=== PATIENT | female | born 1990 | race Caucasian/White ===

== ENCOUNTER 2016-11-30 20:00 | Emergency (ER) | payer OTHER ==
[2016-11-30 19:06] LABS: BASOPHILS 0.2 %; BASOPHILS ABSOLUTE 0.02 10/3/uL (0.0-0.16); EOSINOPHILS 2.7 %; EOSINOPHILS ABSOLUTE 0.25 10/3/uL (0.0-0.53); HEMOGLOBIN 14.2 g/dL (12.0-16.0); IMMATURE GRANULOCYTES 0.2 %; IMMATURE GRANULOCYTES ABSOLUTE 0.02 10/3/uL (0.0-0.11); LYMPHOCYTES 37.7 %; MEAN CORPUS HGB CONC 33.7 g/dL (32.0-36.0); MEAN CORPUSCULAR HEMOGLOB 27.9 pg (26.0-34.0); MEAN CORPUSCULAR VOLUME 82.7 fL (80-100); MEAN PLATELET VOLUME 8.7 fL (9.2-13.0); MONOCYTES ABSOLUTE 0.56 10/3/uL (0.21-1.20); NEUTROPHILS 53.2 %; NEUTROPHILS ABSOLUTE 4.93 10/3/uL (2.02-8.40); PLATELET COUNT 291 10/3/uL (150-400); RBC DISTRIBUTION WIDTH 13.3 % (12.0-16.0); RED CELL COUNT 5.09 10/6/uL (4.0-5.6); WHITE BLOOD CELLS 9.3 10/3/uL (4.5-10.5)
[2016-11-30 19:07] LABS: HEMATOCRIT 42.1 % (36.0-48.0); MANUAL DIFF NO %
[2016-11-30 19:21] LABS: ALBUMIN 3.9 G/DL (3.5-5.0); ALKALINE PHOSPHATASE 77 U/L (45-117); BUN (BLOOD UREA NITROGEN) 9 MG/DL (6-23); CALCIUM, SERUM 9.1 MG/DL (8.5-10.4); CHLORIDE, SERUM 102 MMOL/L (96-112); CO2 (CARBON DIOXIDE) 30 MMOL/L (24-34); CREATININE 0.75 MG/DL (0.55-1.02); GFR AFRICAN AMERICAN 126 ML/MIN (>=60); GFR NON AFRICAN AMERICAN 108 ML/MIN (>=60); GLUCOSE, SERUM 97 MG/DL (60-99); POTASSIUM, SERUM 3.9 MMOL/L (3.5-5.3); SGOT(AST) 15 U/L (5-40); SGPT(ALT) 28 U/L (5-65); SODIUM, SERUM 138 MMOL/L (135-148); TOTAL BILIRUBIN 0.3 MG/DL (0-1.2)
[2016-11-30 19:22] LABS: ACETAMINOPHEN LEVEL (TYLENOL) < 2.0 MCG/ML (10.0-20.0); ALCOHOL < 3 MG/DL (0); GLOBULIN 4.1 G/DL (2.5-4.1); SALICYLATE < 1.7 MG/DL (-)
[2016-11-30 19:35] LABS: AMPHETAMINES (NOT ORD) NEG (NEG); BARBITURATES (NOT ORDERED NEG (NEG); BENZODIAZEPINES (NOT ORD) NEG (NEG); CANNABINOIDS (THC) NEG (NEG); COCAINE (NOT ORDERED) NEG (NEG); OPIATES NEG (NEG); PHENCYCLIDINE(PCP) NEG (NEG); TRICYCLICS NEG (NEG)
== END 2016-11-30 20:52 | disposition home or self-care (01) ==
LOC: ER 20:00
PROVIDERS: Nurse Practitioner Acute Care
DX: F80.81 Childhood onset fluency disorder (principal); Z88.5 Allergy status to narcotic agent; Z91.018 Allergy to other foods
CPT/HCPCS: 80053; 80305; 80307; 84703; 85025; 93005; 99284

== ENCOUNTER 2017-01-01 15:41 | Inpatient (IN) | payer OTHER ==
--- NOTE | ~2017-01-01 | EEG ---
Electroencephalogram [place] [id number] [facility] [place]. [address] NAME: CHRISTIANA SMITH : 86 STATUS : ADM Margareth PAT#: [id number] AGE: 26 ADM/REG DATE : 01/01/17 MR#: [id number] REPORT SERV DATE: 01/02/17 DICTATED BY: DATE: REPORT STATUS : Draft TRANSCRIBED BY: MODL DATE: 01/02/17 CLINICAL INDICATIONS: Encephalopathy, stuttering. DESCRIPTION: This EEG was performed using 10/20 electrode placement system. During the EEG study, symmetric background activity was noted with predominant occipital rhythm of roughly 11 Hz. EKG artifact was noted throughout the EEG study. Photic stimulation was performed with appropriate driving response. Hyperventilation was performed with subsequent lightheadedness. No electrographic seizure was seen during the EEG study. The patient achieved drowsy state during the EEG evaluation. No focal abnormalities, seizure activity, or seizure discharge were otherwise noted during the EEG evaluation. INTERPRETATION: This EEG study was obtained during awake and drowsy state, may be considered within normal limits. No focal abnormalities, seizure activity, or seizure discharge were otherwise noted. Clinical correlation is recommended. [facility]/MODL mon Bennett MD / [id number] CC: Danitza Harrington M.D.
--- NOTE | ~2017-01-01 | HP ---
History And Physical [place] [id number] [facility] [place]. [address] NAME: CHRISTIANA SMITH : 86 STATUS : ADM Margareth PAT#: [id number] AGE: 26 ADM/REG DATE : 01/01/17 MR#: [id number] REPORT SERV DATE: 01/01/17 DICTATED BY: YUMIKO BRAUN DATE: 01/01/17 REPORT STATUS : Draft TRANSCRIBED BY: MODL DATE: 01/01/17 DATE OF ADMISSION: 01/01/2017 HISTORY OF PRESENT ILLNESS: The patient is a 26-year-old female who was brought to [facility] by her because of confusion which patient developed today. The patient's reported that several weeks ago, the patient had a fall at home which was unwitnessed, and after which she developed stuttering, and also, he reported that this morning when she woke up, she was completely confused, she did not know where she is, she did not know what was going on with her, and her stuttering is continuing. The patient's is poor historian, and the patient herself is sitting and looking at me, looks very comfortable, but she cannot provide history. The patient's said that she has improved a little bit but her memory is gone, she forgot everything. Emergency room physician Dr. Ellis spoke with Dr. Fitch who was aware about this patient's stuttering problem and Dr. Fitch requested this patient to be admitted to the hospital to see neurologist, because he said that he could not get in touch with neurologist for a long time. During my interview with the patient, all questions were answered by the patient's , and he said that the patient was at the [facility] where she had the CT, MRI, and multiple studies done, and he said he does not know most of the results of the study, then he saw Dr. Fitch, and Dr. Fitch wanted to arrange Neurology appointment, but because of the long waiting time they are here, and he wants to know what is going on with his with her memory. The patient could not give me answers on the review of systems since she was stuttering and unable to answer properly, but she is able to follow commands. reported that she has thyroid problem, looks like hypothyroidism, also she had history of seizures and she was on gabapentin for the seizures, but recently Dr. Fitch discussed continued gabapentin because she had not had seizures anymore. PAST SURGICAL HISTORY: Includes hand surgery and shoulder dislocation. SOCIAL HISTORY: No smoking. No excessive alcohol use. No drugs. 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 I asked if there is a stress-related issues at her work, but he told me that she does not have any stress-related issues. FAMILY HISTORY: I asked if the patient's mother has any medical problems, the patient looked at me and answered while stuttering, multiple sclerosis, and she said while stuttering father had a stroke, and the patient also was able to answer stuttering. I also asked the patient what year it is now, she told me while stuttering that my mother told me it is year 2016, then I asked the patient does she know the name of this hospital, she told me while stuttering "I don't know the name of this hospital," then she looked at me and said "are you [place], you have an accent," I total told her that I am not [place], I am [place], that is why I have an accent. ALLERGIES: SHE IS ALLERGIC TO CODEINE AND CINNAMON. History And Physical [address] [place]. [address] NAME: CHRISTIANA SMITH : 86 STATUS : ADM Margareth PAT#: [id number] AGE: 26 ADM/REG DATE : 01/01/17 MR#: [id number] REPORT SERV DATE: 01/01/17 DICTATED BY: YUMIKO BRAUN DATE: 01/01/17 REPORT STATUS : Draft TRANSCRIBED BY: JOSE DATE: 01/01/17 MEDICATIONS: Home medications include Fioricet 1 to 2 tablets p.o. q.4 hours p.r.n., Prozac 40 mg daily, levothyroxine 50 mcg a day, naproxen 440 mg daily p.r.n. for headache, Zofran 8 mg p.o. q.6 hours p.r.n. for nausea, and Senokot 2 mg p.o. daily p.r.n. PHYSICAL EXAMINATION: General: Obese female, not in acute distress, sitting on the bed quietly. VITAL SIGNS: Blood pressure 140/79, temperature 98.3, heart rate 80, respiratory rate 24, oxygen saturation is going to be rechecked, oxygen saturation was 97 on room air. HEENT: Head atraumatic, normocephalic. Conjunctivae clear. Pupils are equal and reactive to light and accommodation. Extraocular muscles are intact. NECK: Supple. Trachea is midline. No supraclavicular or cervical lymphadenopathy. LUNGS: Clear to auscultation bilaterally. Normal respiratory effort. CARDIOVASCULAR SYSTEM: Regular rate and rhythm. Point of maximal impulse not displaced. ABDOMEN: Soft, nontender, nondistended. Positive normoactive bowel sounds. EXTREMITIES: No clubbing, cyanosis, or edema. SKIN: Normal color and turgor. NEUROLOGIC: She is awake, she is alert, she is oriented in the year and knows who she is. She has stuttering speech but she can follow commands. She can answer questions while stuttering, and she functions appropriately, having stuttering episodes. Cranial nerves 3 through 12 grossly intact. Sensations are intact. Muscle strength is 5/5 bilateral in upper and lower extremities. PSYCHIATRIC: Normal mood, a little bit indifferent and flat affect. LABORATORY RESULTS: Sodium 143, potassium 3.9, chloride 107, carbon dioxide 29, BUN 9, creatinine 0.61. Blood sugar 84, troponin less than 0.02. ALT 30, AST 16, white count 8.1, hemoglobin 13.9, hematocrit 40.8, platelet count 309. Urine test is negative. Urinalysis showed moderate amount of leukocyte esterase with [address] of the brain without contrast is ordered in the emergency room. The patient had also CT of the brain without contrast on 11/29/2016 which was negative as well as she had a MRI of the brain done on 11/21/2016 which showed bilateral maxillary sinus disease with small fluid meniscus suggesting acute superimposed on chronic sinusitis. No acute intracranial pathology otherwise. Chest x-ray done today did not show any abnormality. EKG showed normal sinus rhythm with the rate of 79. ASSESSMENT AND PLAN: 1. This is a 26-year-old female, who presented with episode of confusion at home, now it is resolving, as well as stuttering going on for several weeks according to the patient family after head trauma. She had a negative MRI and the CT of the brain recently. We are going to admit the patient as an observation, we are going to monitor her closely. I think this is most likely functional disorder, could be related to stress. I told the patient that there is a possibility it may be related to stress, especially with combination with stuttering, and patient is already has some improved memory. She even could mention that I have an accent and could communicate with me. We will ask Neurology to evaluate this patient per recommendation of Dr. Fitch. We will History And Physical [address] [place]. [address] NAME: CHRISTIANA SMITH : 86 STATUS : ADM Margareth PAT#: [id number] AGE: 26 ADM/REG DATE : 01/01/17 MR#: [id number] REPORT SERV DATE: 01/01/17 DICTATED BY: YUMIKO BRAUN DATE: 01/01/17 REPORT STATUS : Draft TRANSCRIBED BY: JOSE DATE: 01/01/17 consult Neurology. 2. Mild urinary tract infection, only 11 white cells in the urine. We will give her 1 shot of Rocephin. 3. We will follow up on this patient tomorrow. [facility]/JOSE Yumiko Braun M.D. / [id number] CC: Shakeel Fitch M.D.
--- NOTE | ~2017-01-01 | DS ---
Discharge Summary [facility] [address] [place]. [address] NAME: CHRISTIANA SMITH : 86 STATUS : DIS Margareth PAT#: [id number] AGE: 26 ADM/REG DATE : 01/01/17 MR#: [id number] REPORT SERV DATE: 01/04/17 DICTATED BY: BRINDA SAMUEL DATE: 01/03/17 REPORT STATUS : Draft TRANSCRIBED BY: MODL DATE: 01/03/17 ADMISSION DATE: 01/01/2017 DISCHARGE DATE: 01/03/2017 CONSULTANTS: Dr. Bennett, Neurology. DISCHARGE DIAGNOSES: 1. 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 2. Pacfe-qf-sjktmur headaches. 3. History of major depression. 4. Hypothyroidism. 5. Obesity with body mass index 46.2. HISTORY: This patient presented to [facility] emergency room reporting that several weeks ago, she had a fall, unwitnessed, and after which she has had intermittent stuttering and confusion, not knowing where she is, not knowing where she works. The patient had been seen by their PCP, 11/26/2016, because at that time reportedly she was complaining of inability to speak and hemiplegia. CT of the brain was normal. MRI of the brain normal, other than some sinus changes. MRA of the brain and neck, normal. MRI of the cervical spine, normal. The patient presented with these same complaints and ER asked us to admit her in the hospital. Imaging during this current hospitalization included a CT scan of the brain without contrast done in the emergency room, it was normal. She was seen by Neurology, Dr. Bennett and we decided to do further imaging and testing just to cover the bases. MRI of the brain with and without contrast on 01/02/2017 was normal. Spinal tap was done. Opening pressure was normal. Spinal fluid had 2 white blood cells, normal glucose, normal protein. No organisms or culture on the Gram stain and cryptococcal antigen was negative. HIV antibody negative. Chemistries, liver function, TSH all normal. White count, hemoglobin, and platelets normal. Urinalysis had moderate leukocyte esterase, 11 white cells, but she had no symptoms of UTI. One of two blood cultures grew out strep viridans. It was felt to be a contaminant because it was only 1/2. She had no fever, no leukocytosis. Her procalcitonin was less than 0.05. Her CRP was 4.1. This is consistent with a contaminant and a noninfectious etiology. Her sedimentation rate was 14. I discussed with the patient and her that both the neurologist and I felt this is most likely psychogenic, and we recommended that she have psychological follow up as an outpatient. The patient seems quite open to this. seems willing, but less open to it. I did call and speak to her PCP, Dr. Shakeel Fitch about this and he is going to try to get her set up for psychological followup. The patient asked for a work note to be off work until cleared by her PCP because she does not remember where she has worked over the last eight weeks. Interestingly, during the time Discharge Summary [place] [address] [place] [address] NAME: CHRISTIANA SMITH : 86 STATUS : DIS Margareth PAT#: [id number] AGE: 26 ADM/REG DATE : 01/01/17 MR#: [id number] REPORT SERV DATE: 01/04/17 DICTATED BY: BRINDA SAMUEL DATE: 01/03/17 REPORT STATUS : Draft TRANSCRIBED BY: JOSE DATE: 01/03/17 that she was here, she had no difficulty remembering the events of the previous day that when I had seen her before and the previous senior product consultant neurologist and describing multiple of the things that occurred during our conversations on the previous day. She was ambulatory. No focal neurologic deficits. Her stuttering pattern was extremely atypical and that every syllable was stuttered. Speech Therapy saw her and felt she had no swallowing problems. They recommended consideration for outpatient speech therapy. HOME MEDICATIONS: Prozac 40 mg daily, which is a chronic medicine for her; Synthroid 50 mcg daily; Fioricet one t.i.d. p.r.n. headache (if she has headaches frequent enough and possibly consideration for prophylaxis might be considered); Aleve p.r.n.; Zofran 8 mg q.6 hours p.r.n., which is another chronic medicine for her; Senokot biul-kxy-eucgjhu p.r.n. I spent 63 minutes today with the patient and with her and with case management and with the neurologist. DICTATED BY: Danitza Harrington/JOSE Brinda Samuel M.D. / [id number] CC: Danitza Harrington M.D.
--- NOTE | ~2017-01-01 | CN ---
Consultation Report [facility] [address] [place]. [address] NAME: CHRISTIANA SMITH : 86 STATUS : ADM aMrgareth PAT#: [id number] AGE: 26 ADM/REG DATE : 01/01/17 MR#: [id number] REPORT SERV DATE: 01/03/17 DICTATED BY: DATE: REPORT STATUS : Draft TRANSCRIBED BY: MODL DATE: 01/02/17 NEUROLOGY CONSULTATION DATE OF CONSULTATION: 01/02/2017 REASON FOR CONSULT: Stuttering as well as encephalopathy. HISTORY OF PRESENT ILLNESS: This is a 26-year-old female, who presented to [facility] on 01/01/2017. The patient woke up that day and was noted to have memory problem and confusion, does not remember anything that is going on, what has happened. The patient's reports roughly two to three weeks ago when the patient hit her head against a dresser, the patient started experiencing stuttering issues, the patient's stuttering persists without significant improvement. No waxing and waning, and no significant improving or aggravating factors. The patient and family denies any stress. The patient otherwise reports numbness in the left upper extremities, but otherwise denies focal weakness. No gait abnormality was otherwise noted. No dysarthria was noted by the patient or family members. No reports of fevers or chills was otherwise noted. No nausea or vomiting. No chest pain or shortness of breath. The patient and family denies any recent travels and denies any recent sick contact. The patient does not have any stuttering issues in the past, and does not have any psychiatric issues documented. The patient does complain of a headache at the time of evaluation, otherwise no other changes in medication were reported, and no other complaints were noted. The patient appeared to be slightly better today as far as the memory goes, but does not quite appear to be at baseline as the patient reports having several difficulties with questions. The patient's past medical history is significant for history of apparent headache as well as the recent head trauma when the patient hit her head against a dresser, and persistent stuttering issue for the past two to three weeks. FAMILY HISTORY: Significant for multiple sclerosis as well as question of possible lupus in all family members with the patient's father of a stroke. SOCIAL HISTORY: Denies tobacco, alcohol, or recreational drug usage. 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 ALLERGIES: THE PATIENT WAS REPORTED TO HAVE ALLERGY TO CODEINE WELL CINNAMON. HOME MEDICATIONS: Consist of Fioricet, Prozac, Synthroid, Aleve, Zofran, and Senokot. REVIEW OF SYSTEMS: Negative except for those mentioned in the HPI. PHYSICAL EXAMINATION: VITAL SIGNS: At the time of evaluation, the patient was noted to have vital signs with T-max of 98.5, heart rate of 69 to 72, respirations of 16 to 20, and blood pressure of 110 to 119 over 56 to 67. Consultation Report [place] [id number] [place]. [address] NAME: CHRISTIANA SMITH : 88 STATUS : ADM Margareth PAT#: [id number] AGE: 26 ADM/REG DATE : 01/01/17 MR#: [id number] REPORT SERV DATE: 01/03/17 DICTATED BY: DATE: REPORT STATUS : Draft TRANSCRIBED BY: MODNicole DATE: 01/02/17 GENERAL: The patient is well-developed, well-nourished, in no acute distress. CARDIOVASCULAR: Regular rate and rhythm. No carotid bruits were otherwise auscultated. PULMONARY: Clear to auscultation bilaterally. NEUROLOGIC: Generally, the patient is alert and oriented to person, place, and year, but not to month. The patient was noted to have persistence stuttering during the evaluation, but no clear dysarthria was noted. The patient otherwise is able to communicate in complete sentences. At the time of evaluation, the patient is able to follow simple and two-step commands without significant difficulties. The patient was noted to have difficulties with recall, and with registration, the patient reports that does not remember parts of pertinent medical history. The patient otherwise was noted to have cranial nerves 2 through 12, pupils equal, round, and reactive to light. Horizontal eye movement was noted to be intact with intact vertical eye movement as well. Reports symmetrical facial sensation. Midline tongue. Normal palatal movement. Symmetrical facial expression. Normal hearing. The patient does demonstrate 5/5 bilateral upper and lower extremity strength. No pronator drift was noted, but reports significant decreased sensation in the left upper and left lower extremity, noted to have normal sjnshs-po-qrge examination without ataxia. Mildly hyperreflexic 3+ throughout. LABORATORY STUDIES: Demonstrated white blood cell count of 8.1, hemoglobin of 13.9, hematocrit of 40.8, and platelet count of 309. Chemistry panel: Sodium 143, potassium 3.9, chloride 107, bicarb 29, BUN of 9, creatinine of 0.61, glucose of 84, and calcium of 9.3. Serum TSH of 2.92. Serum test is otherwise negative. Urinalysis demonstrated moderate leukocyte esterase, negative nitrite. CT scan of the brain demonstrated no acute process. The patient does have an MRI of the brain on 11/29/2016 without contrast which demonstrated no significant acute process. No clear MS type of lesion was otherwise reported. IMPRESSION: 1. Stuttering. 2. Encephalopathy, concern for possible psychogenic etiology. We will check an MRI of the brain with and without contrast, EEG and laboratory studies. If the studies are negative, may consider Psychiatric consult. We will start the patient on Depakote for headache. RECOMMENDATION: 1. EEG. 2. MRI of the brain with and without contrast. 3. Radiology for LP. 4. CSF for protein, glucose, cell count with differential, HSV-PCR, cryptococcal antigen, Gram stain, as well as bacterial culture, myelin basic protein, and oligoclonal band. 5. Ammonia level with TSH and free T4, thiamine, vitamin B12, folate, sedimentation rate, and CRP with morning labs. 6. Speech therapy for stuttering as well as evaluation for dysphagia. 7. Depakote 125 mg IV b.i.d. for headache. Consultation Report [address] [address] NAME: CHRISTIANA SMITH : 86 STATUS : ADM Margareth PAT#: [id number] AGE: 26 ADM/REG DATE : 01/01/17 MR#: [id number] REPORT SERV DATE: 01/03/17 DICTATED BY: DATE: REPORT STATUS : Draft TRANSCRIBED BY: JOSE DATE: 01/02/17 [facility]/JOSE mon Bennett MD / [id number] CC: Danitza Harrington M.D.
[2017-01-01 16:39] LABS: BASOPHILS 0.2 %; BASOPHILS ABSOLUTE 0.02 10/3/uL (0.0-0.16); EOSINOPHILS ABSOLUTE 0.16 10/3/uL (0.0-0.53); ER CBC TAT 0 Hrs 05 Mins; HEMATOCRIT 40.8 % (36.0-48.0); HEMOGLOBIN 13.9 g/dL (12.0-16.0); IMMATURE GRANULOCYTES 0.2 %; IMMATURE GRANULOCYTES ABSOLUTE 0.02 10/3/uL (0.0-0.11); LYMPHOCYTES 40.3 %; LYMPHOCYTES ABSOLUTE 3.27 10/3/uL (0.67-4.30); MEAN CORPUS HGB CONC 34.1 g/dL (32.0-36.0); MEAN CORPUSCULAR VOLUME 82.1 fL (80-100); MEAN PLATELET VOLUME 8.7 fL (9.2-13.0); MONOCYTES 7.9 %; MONOCYTES ABSOLUTE 0.64 10/3/uL (0.21-1.20); NEUTROPHILS 49.4 %; NEUTROPHILS ABSOLUTE 4.01 10/3/uL (2.02-8.40); PLATELET COUNT 309 10/3/uL (150-400); RBC DISTRIBUTION WIDTH 13.1 % (12.0-16.0); RED CELL COUNT 4.97 10/6/uL (4.0-5.6); WHITE BLOOD CELLS 8.1 10/3/uL (4.5-10.5)
[2017-01-01 16:40] LABS: MANUAL DIFF NO %
[2017-01-01 16:57] LABS: A/G RATIO 1.1 (0.7-1.9); ALBUMIN 3.9 G/DL (3.5-5.0); ALKALINE PHOSPHATASE 77 U/L (45-117); BUN (BLOOD UREA NITROGEN) 9 MG/DL (6-23); CALCIUM, SERUM 9.3 MG/DL (8.5-10.4); CHLORIDE, SERUM 107 MMOL/L (96-112); CO2 (CARBON DIOXIDE) 29 MMOL/L (24-34); CREATININE 0.61 MG/DL (0.55-1.02); GFR AFRICAN AMERICAN 143 ML/MIN (>=60); GFR NON AFRICAN AMERICAN 123 ML/MIN (>=60); GLOBULIN 3.7 G/DL (2.5-4.1); GLUCOSE, SERUM 84 MG/DL (60-99); POTASSIUM, SERUM 3.9 MMOL/L (3.5-5.3); SGOT(AST) 16 U/L (5-40); SGPT(ALT) 30 U/L (5-65); SODIUM, SERUM 143 MMOL/L (135-148); TOTAL BILIRUBIN 0.3 MG/DL (0-1.2); TOTAL PROTEIN 7.6 G/DL (6.0-8.5); TROPONIN I <0.02 NG/ML (<0.05)
[2017-01-01 17:00] LABS: ASCORBIC ACID (UR NOT ORDER) NEG (NEG); BILIRUBIN, URINE NEGATIVE (NEG); ER URINALYSIS TAT 0 Hrs 26 Mins; KETONE, URINE NEGATIVE (NEG); LEUKOCYTE ESTERASE(NOT OR MOD (NEG); NITRITE (URINE) NEG (NEG); WBC (NOT ORDERED) (RFLEX) 11 (0-5)
[2017-01-01] MEDS ORDERED: FIORICET 50-301 EACH PO (17:55)
[2017-01-01] MEDS ORDERED: ZOFRAN8 PO (17:55)
[2017-01-01] MEDS ORDERED: ALEVE220 MG PO (17:55)
[2017-01-01] MEDS ORDERED: SYN.05 PO (17:55)
[2017-01-01] MEDS ORDERED: PROZAC40 MG PO (17:55)
[2017-01-01] MEDS ORDERED: SENTAB PO (17:56)
[2017-01-02 19:33] LABS: CSF APPEARANCE (NOT ORD) CLEAR (CLEAR); CSF BASO 0 % (NO REF RANGE); CSF COLOR (NOT ORD) COLORLESS (COLORLESS); CSF EOS 0 % (0-1); CSF LYMPH (NOT ORD) 90 % (28-96); CSF MONO 9 % (16-56); CSF RBC (NOT ORD) 11 MM3 (NO REFERENCE); CSF SEGS (NOT ORD) 1 % (0-7); CSF WBC (NOT ORD) 2 /uL (0-10); CSF XANTHROCHROMIA NEG (NEG)
[2017-01-03 06:26] LABS: C-REACTIVE PROTEIN 4.1 MG/L (<8.0)
[2017-01-03 06:48] LABS: FOLATE 18.6 NG/ML (>5.2)
[2017-01-03 07:54] LABS: PROCALCITONIN <0.05 ng/mL (<0.5)
[2017-01-03] MEDS ORDERED: FIORICET 50-301 EACH PO (15:16)
[2017-01-06 17:55] LABS: HSV DNA TYPE 1 Not Detected (NOTDET); HSV DNA TYPE 2 Not Detected (NOTDET)
[2017-01-07 10:38] LABS: ALBUMIN INDEX 3.4 ratio (0.0-9.0); CSF IGG SYNTHESIS RATE <0.0 mg/d (0.0-8.0); CSF IGG/ALBUMIN RATIO 0.12 ratio (0.09-0.25); CSF OLIGOCLONAL BANDS Negative (NEG); CSF OLIGOCLONAL BANDS NUMBER 0 Bands (0-1); IGG INDEX 0.47 ratio (0.28-0.66); IMMUNOGLOBULIN G, SERUM 956 mg/dL (768-1632)
== END 2017-01-03 15:37 | disposition home or self-care (01) | DRG 880 ==
LOC: ER 15:41 → 1SO 18:56
PROVIDERS: Hospitalist; Psychiatry & Neurology Neurology
PROC: 009U3ZX Drainage of Spinal Canal, Percutaneous Approach, Diagnostic (ICD-10-PCS; principal; 2017-01-02)
PROC: B01B1ZZ Fluoroscopy of Spinal Cord using Low Osmolar Contrast (ICD-10-PCS; 2017-01-02)
DX: F44.0 Dissociative amnesia (principal); Z68.42 Body mass index [BMI] 45.0-49.9, adult; F98.5 Adult onset fluency disorder; E03.9 Hypothyroidism, unspecified; E66.9 Obesity, unspecified; R51 Headache; Z91.81 History of falling; Z88.5 Allergy status to narcotic agent
CPT/HCPCS: 62270; 70450; 70553; 71020; 77003; 80053; 81001; 82040; 82042; 82140; 82607; 82746; 82784; 82784-59; 82945; 82962; 83036; 83873; 83916; 84145; 84157; 84425; 84439; 84443; 84484; 84703; 85025; 85652; 86140; 86592; 87040; 87070; 87086; 87150; 87205; 87327; 87389; 87529; 87529-59; 89051; 92522-GN; 92610-GN; 93005; 95816; 99285; A9270-GY; A9577; J2405; J3370